=== PATIENT | male | born 1965 | race Caucasian/White ===

== ENCOUNTER 2017-08-04 15:34 | Emergency (ER) | payer BC ==
[~2017-08-04 15:34] MED LIST: ASPI81TA82 PO; LAMO25TA PO; LORA1TAB PO; RISP1SOL15 PO; SERT-132 PO; [UNRECOGNIZED DRUG - OTHER]
[2017-08-04 17:59] VITALS: BP 142/62; PULSE 68; RESP 16; TEMP 98.6; O2SAT 98
[2017-08-04 18:28] LABS: AUTOMATED NEUTROPHIL # 8.5 TH/MM3 (1.8-7.7); BASOPHIL % 0.1 % (0.0-2.0); EOSINOPHIL % 0.1 % (0.0-4.0); HEMATOCRIT 43.5 % (39.0-51.0); HEMO FLAGS DIFF FINAL; LYMPH % 15.6 % (9.0-44.0); LYMPHOCYTE # 1.8 TH/MM3 (1.0-4.8); MEAN CELL VOLUME 80.3 FL (80.0-100.0); MEAN CORPUSCULAR HEMOGLOBIN 27.9 PG (27.0-34.0); MEAN CORPUSCULAR HGB CONC 34.7 % (32.0-36.0); MONO % 8.2 % (0.0-8.0); PLATELET COUNT 238 TH/MM3 (150-450); RED BLOOD COUNT 5.42 MIL/MM3 (4.50-5.90); RED CELL DISTRIBUTION WIDTH 14.4 % (11.6-17.2); WHITE BLOOD COUNT 11.2 TH/MM3 (4.0-11.0)
[2017-08-04 18:39] LABS: ANION GAP 8 MEQ/L (5-15); BICARBONATE 28.1 MEQ/L (21.0-32.0); BLOOD UREA NITROGEN 23 MG/DL (7-18); CHLORIDE 103 MEQ/L (98-107); GLOMERULAR FILTRATION RATE 52 ML/MIN (>89); POTASSIUM 3.8 MEQ/L (3.5-5.1); SODIUM (NA) 139 MEQ/L (136-145)
[2017-08-04 18:44] LABS: ALCOHOL LESS THAN 3 MG/DL (0-5)
[2017-08-04] MEDS ORDERED: ANTI ANXIETY MED (20:09)
[2017-08-04] MEDS ORDERED: SERT-132 PO (20:09)
[2017-08-04] MEDS ORDERED: SERO300T PO (20:09)
--- NOTE | 2017-08-04 20:31 | PD ---
HPI Chief Complaint: Psychiatric Symptoms Time Seen by Provider: 19:16 Travel History International Travel<30 days: No Contact w/Intl Traveler<30days: No Traveled to known affect area: No History of Present Illness HPI 52-year-old male presents to the emergency room under an ex parte order initiated by his . Per order, patient has been becoming violent and his is in fear for her safety. Patient denies any medical complaints. Denies chronic medical conditions. He does take medications for anxiety. Denies illicit drug use. Denies steroid use. He drinks alcohol occasionally. PFSH Past Medical History Anxiety: Yes Depression: Yes Diminished Hearing: No Social History Alcohol Use: No Tobacco Use: No Substance Use: No (Denies any substance abuse [place] or HX) Allergies-Medications (Allergen,Severity, Reaction): Coded Allergies: No Known Allergies (Verified , 01/02/08) Reported Meds & Prescriptions Reported Meds & Active Scripts Active Reported [anti-anxiety med] Seroquel (Quetiapine Fumarate) 300 Mg Tab 300 Mg PO HS Sertraline (Sertraline HCl) 50 Mg Tab 50 Mg PO DAILY Review of Systems Except as stated in HPI: all other systems reviewed are Neg Physical Exam Narrative GENERAL: Well-nourished, well-developed male in no acute distress. Afebrile. Ambulatory. SKIN: Focused skin assessment warm/dry. HEAD: Normocephalic. EYES: No scleral icterus. No injection or drainage. NECK: Supple, trachea midline. No JVD or lymphadenopathy. CARDIOVASCULAR: Regular rate and rhythm without murmurs, gallops, or rubs. RESPIRATORY: Breath sounds equal bilaterally. No accessory muscle use. PSYCHIATRIC: No delusional thought processes. No hallucinations. Flat affect. Data Data Last Documented VS Vital Signs Date Time Temp Pulse Resp B/P (MAP) Pulse Ox O2 Delivery O2 Flow Rate FiO2 08/04/17 17:59 98.6 68 16 142/62 (88) 98 Orders Orders Complete Blood Count With Diff (08/04/17 17:09) Basic Metabolic Panel (Bmp) (08/04/17 17:09) Psych Screen (08/04/17 17:09) Drug Screen, Random Urine (08/04/17 17:09) Alcohol (Ethanol) (08/04/17 17:09) Labs Laboratory Tests Test 08/04/17 18:00 White Blood Count 11.2 TH/MM3 Red Blood Count 5.42 MIL/MM3 Hemoglobin 15.1 GM/DL Hematocrit 43.5 % Mean Corpuscular Volume 80.3 FL Mean Corpuscular Hemoglobin 27.9 PG Mean Corpuscular Hemoglobin Concent 34.7 % Red Cell Distribution Width 14.4 % Platelet Count 238 TH/MM3 Mean Platelet Volume 8.0 FL Neutrophils (%) (Auto) 76.0 % Lymphocytes (%) (Auto) 15.6 % Monocytes (%) (Auto) 8.2 % Eosinophils (%) (Auto) 0.1 % Basophils (%) (Auto) 0.1 % Neutrophils # (Auto) 8.5 TH/MM3 Lymphocytes # (Auto) 1.8 TH/MM3 Monocytes # (Auto) 0.9 TH/MM3 Eosinophils # (Auto) 0.0 TH/MM3 Basophils # (Auto) 0.0 TH/MM3 CBC Comment DIFF FINAL Differential Comment Blood Urea Nitrogen 23 MG/DL Creatinine 1.44 MG/DL Random Glucose 110 MG/DL Calcium Level 9.1 MG/DL Sodium Level 139 MEQ/L Potassium Level 3.8 MEQ/L Chloride Level 103 MEQ/L Carbon Dioxide Level 28.1 MEQ/L Anion Gap 8 MEQ/L Estimat Glomerular Filtration Rate 52 ML/MIN Urine Opiates Screen NEG Urine Barbiturates Screen NEG Urine Amphetamines Screen NEG Urine Benzodiazepines Screen NEG Urine Cocaine Screen NEG Urine Cannabinoids Screen NEG Ethyl Alcohol Level LESS THAN 3 MG/DL MDM Medical Decision Making Medical Screen Exam Complete: Yes Emergency Medical Condition: Yes Medical Record Reviewed: Yes Differential Diagnosis Anxiety, steroid abuse, mood disorder, drug-induced mood disorder, schizophrenia , personality disorder Narrative Course 52-year-old male presents to the emergency room for evaluation after his applied for an ex parte order because of increased/worsening anger and rage. Patient denies any medical complaints. Vital signs stable. Drug screen negative. No alcohol. CBC is unremarkable. BMP shows acute kidney injury. Only mildly increased from previous. When confronted, patient states he is likely dehydrated because he "trains a lot." He was encouraged to drink plenty of fluids. Patient is medically cleared for psychiatric evaluation. Condition: Stable Kenyatta Dennis Aug 04, 2017 20:31
[2017-08-04 22:51] VITALS: BP 119/58; PULSE 65; RESP 17; O2SAT 99
== END 2017-08-05 02:12 ==
LOC: NEPJ 15:34
DX: F32.9 Major depressive disorder, single episode, unspecified (principal); Z79.899 Other long term (current) drug therapy
CPT/HCPCS: 80048; 80307; 85025; 99283